=== PATIENT | male | born 1980 | race Caucasian/White ===

== ENCOUNTER 2019-01-14 22:38 | Emergency (ER) | payer MEDICARE ==
[~2019-01-14] VITALS: Ht 190.5 cm; Wt 118.2 kg
[2019-01-14 22:54] VITALS: BP 115/66; TEMP 97.9
[2019-01-15 00:29] LABS: BASO # 0.1 (0.0-0.2); BASO % 0.8 % (0.0-2.0); EOS # 0.3 (0.0-0.7); EOS % 3.2 % (0-4.0); GRAN # 5.6 (1.4-6.5); GRAN % 56.2 % (42.2-75.2); HEMATOCRIT 39.7 % (42.0-52.0); HEMOGLOBIN 13.2 g/dl (13.5-18.0); LYMPH # 3.1 (1.2-3.4); LYMPH % 31.4 % (20.0-51.0); MEAN CELL VOLUME 93 fl (80.0-100.0); MEAN CORPUSCULAR HEMOGLOBIN 31 pg (27.0-31.0); MEAN CORPUSCULAR HGB CONC 33 g/dl (33.0-37.0); MEAN PLATELET VOLUME 9.6 fl (7.4-10.4); MONO # 0.8 (0.1-0.6); MONO % 8.1 % (1.7-9.3); PLATELET COUNT 246 K/mm3 (130-400); RED BLOOD COUNT 4.25 M/mm3 (4.20-5.60); REDCELL DISTRIBUTION WIDTH-CV 13.2 % (11.5-14.5)
[2019-01-15 00:40] LABS: CALCIUM 9.9 mg/dL (8.4-10.2); CREATININE, serum 1.3 (0.66-1.25); POTASSIUM 3.6 mmol/L (3.4-5.0)
[2019-01-15] MEDS ORDERED: NORCO 325 MG-51 TAB PO (01:32)
[2019-01-15 01:42] VITALS: PULSE 66
== END 2019-01-15 01:54 | disposition home or self-care (01) ==
LOC: COL.ER 22:38
PROVIDERS: Physician Assistant
DX: M25.511 Pain in right shoulder (principal); M54.5 Low back pain; M54.6 Pain in thoracic spine; M54.2 Cervicalgia; F31.9 Bipolar disorder, unspecified; F43.10 Post-traumatic stress disorder, unspecified; K21.9 Gastro-esophageal reflux disease without esophagitis; J44.9 Chronic obstructive pulmonary disease, unspecified; Z98.890 Other specified postprocedural states; Z87.891 Personal history of nicotine dependence

== ENCOUNTER 2019-04-20 11:00 | Emergency (ER) | payer MEDICARE ==
[~2019-04-20] VITALS: Ht 190.5 cm; Wt 115.9 kg
[~2019-04-20 11:00] MED LIST: NORCO 325 MG-51 TAB PO
[2019-04-20 11:04] VITALS: TEMP 98.2
[2019-04-20] MEDS ORDERED: NEURONTIN600 MG/TAB PO (11:26)
[2019-04-20] MEDS ORDERED: BETAPACE 80MG80 MG PO (11:27)
[2019-04-20] MEDS ORDERED: LITHIUM 30300 MG/CAP PO (11:28)
[2019-04-20] MEDS ORDERED: SYNTHROID0.05 MG/TA PO (11:29)
[2019-04-20] MEDS ORDERED: PROTONIX 40MG T40 MG PO (11:29)
[2019-04-20] MEDS ORDERED: LIPITOR 10MG10 MG PO (11:30)
[2019-04-20] MEDS ORDERED: NATURAL POTASS595 MG (11:31)
[2019-04-20] MEDS ORDERED: 00186-0370-20 IH (11:32)
[2019-04-20] MEDS ORDERED: PROAIR HFA0.09 MG/AC IH (11:33)
[2019-04-20] MEDS ORDERED: SPIRIVA RESPIMAT4 GM IH (11:34)
[2019-04-20 11:37] LABS: BASO % 0.5 % (0.0-2.0); EOS # 0.3 (0.0-0.7); GRAN # 4.6 (1.4-6.5); GRAN % 59.4 % (42.2-75.2); HEMATOCRIT 42.3 % (42.0-52.0); LYMPH # 2.1 (1.2-3.4); LYMPH % 27.1 % (20.0-51.0); MEAN CELL VOLUME 93 fl (80.0-100.0); MEAN CORPUSCULAR HEMOGLOBIN 31 pg (27.0-31.0); MEAN CORPUSCULAR HGB CONC 33 g/dl (33.0-37.0); MEAN PLATELET VOLUME 9.5 fl (7.4-10.4); MONO # 0.7 (0.1-0.6); MONO % 8.7 % (1.7-9.3); PLATELET COUNT 232 K/mm3 (130-400); RED BLOOD COUNT 4.57 M/mm3 (4.20-5.60); REDCELL DISTRIBUTION WIDTH-CV 12.9 % (11.5-14.5)
[2019-04-20 11:45] LABS: ALBUMIN 4.5 gm/dL (3.5-5.0); BILIRUBIN,TOTAL 1.4 mg/dL (0.0-1.0); CALCIUM 9.7 mg/dL (8.4-10.2); CREATININE, serum 0.95 (0.66-1.25); TOTAL PROTEIN 8.3 gm/dL (6.4-8.2)
[2019-04-20 12:45] VITALS: BP 101/66; PULSE 61
== END 2019-04-20 12:45 | disposition home or self-care (01) ==
LOC: COL.ER 11:00
PROVIDERS: Nurse Practitioner
DX: K92.1 Melena (principal); J44.9 Chronic obstructive pulmonary disease, unspecified; K21.9 Gastro-esophageal reflux disease without esophagitis; F31.9 Bipolar disorder, unspecified; I10 Essential (primary) hypertension; F43.10 Post-traumatic stress disorder, unspecified; Z90.89 Acquired absence of other organs; Z95.0 Presence of cardiac pacemaker

== ENCOUNTER → 2019-04-28 | Outpatient (CLI) | payer MEDICARE ==
[~2019-04-28] MED LIST changes: +00186-0370-20 IH; +BETAPACE 80MG80 MG PO; +LIPITOR 10MG10 MG PO; +LITHIUM 30300 MG/CAP PO; +NATURAL POTASS595 MG; +NEURONTIN600 MG/TAB PO; +PROAIR HFA0.09 MG/AC IH; +PROTONIX 40MG T40 MG PO; +SPIRIVA RESPIMAT4 GM IH; +SYNTHROID0.05 MG/TA PO
== END ==
LOC: COL.RAD 10:59
DX: K92.1 Melena (principal); R10.30 Lower abdominal pain, unspecified; Z95.0 Presence of cardiac pacemaker
CPT/HCPCS: Q9967

== ENCOUNTER 2019-05-13 06:28 | Day surgery (SDC) | payer MEDICARE ==
[~2019-05-13] VITALS: Ht 190.5 cm; Wt 116.9 kg
[2019-05-13 06:55] VITALS: BP 112/81; PULSE 70; TEMP 98.1
[2019-05-13] MEDS ORDERED: LITHIUM 60600 MG/CAP PO (07:07)
--- NOTE | 2019-05-13 07:13 | NUR ---
TO RM AT 0630, CALL LIGHT IN REACH AT BEDSIDE.
[2019-05-13 08:15] VITALS: BP 108/64; PULSE 62; TEMP 98.3
--- NOTE | 2019-05-13 08:15 | NUR ---
TO BAY3 PER CART FROM ENDOSCOPY. ALERT ORIENTED X3, TALKING TO STAFF AND . AMBULATED TO RECLINER. DR BANG TALKED TO PATIENT PRIOR TO PATIENT RETURNING TO HIS ROOM. RECEIVED COLA AND EKTA. PUDDING.
--- NOTE | 2019-05-13 08:20 | NUR ---
FAUSTINA WILEY FROM [facility] NOTIFIED OF PATIENT RETURNING TO . I WAS INSTRUCTED LONG A MAGNET WAS USED AND REMOVED HE WOULD BE FINE TO RETURN HOME. PATIENT AND HIS STATED THEY HAVE A "PACEMAKER MONITOR" AT HOME TO MAKE SURE IT IS WORKING.
[2019-05-13 08:30] VITALS: BP 103/64; PULSE 63
--- NOTE | 2019-05-13 08:30 | NUR ---
ATE 100% AND TOLERATED WELL.
--- NOTE | 2019-05-13 08:35 | NUR ---
RECEIVED DISCHARGE INSTRUCTIONS AND VERBALIZED UNDERSTANDING. DISCONTINUED IV AND INT- CATHETER INTACT.
--- NOTE | 2019-05-13 08:45 | NUR ---
DISCHARGED PER WC BY NURSING STAFF TO PRIVATE CAR IN CARE OF - VASILIY.
== END 2019-05-13 08:45 | disposition home or self-care (01) ==
LOC: SDCO 06:28
DX: D12.0 Benign neoplasm of cecum (principal); E78.00 Pure hypercholesterolemia, unspecified; K21.9 Gastro-esophageal reflux disease without esophagitis; K92.1 Melena; I10 Essential (primary) hypertension; J44.9 Chronic obstructive pulmonary disease, unspecified; G47.33 Obstructive sleep apnea (adult) (pediatric); Z86.010 Personal history of colon polyps; Z95.0 Presence of cardiac pacemaker; Z82.49 Family history of ischemic heart disease and other diseases of the circulatory system; Z83.3 Family history of diabetes mellitus; Z82.3 Family history of stroke; Z87.891 Personal history of nicotine dependence; Z84.1 Family history of disorders of kidney and ureter; Z88.8 Allergy status to other drugs, medicaments and biological substances; Z88.6 Allergy status to analgesic agent
CPT/HCPCS: J2704; J7030

== ENCOUNTER → 2019-08-27 | Outpatient (CLI) | payer MEDICARE ==
[~2019-08-27] MED LIST changes: +LITHIUM 60600 MG/CAP PO
== END ==
LOC: COL.PUL 09:42
DX: R06.02 Shortness of breath (principal); Z87.891 Personal history of nicotine dependence
CPT/HCPCS: J7674

== ENCOUNTER 2019-10-22 09:43 | Outpatient (CLI) | payer MEDICARE ==
[~2019-10-22] VITALS: Ht 190.5 cm; Wt 116.8 kg
[2019-10-22] MEDS ORDERED: PRIL40 PO (10:13)
[2019-10-22] MEDS ORDERED: BETAPACE 80MG80 MG PO (10:15)
[2019-10-22 10:16] VITALS: BP 109/72; PULSE 69; TEMP 98.3
== END 2019-10-22 11:20 | disposition home or self-care (01) ==
LOC: EUO 09:43
DX: Z79.899 Other long term (current) drug therapy (principal)

== ENCOUNTER 2020-01-18 10:54 | Emergency (ER) | payer MEDICARE ==
[~2020-01-18] VITALS: Ht 190.5 cm; Wt 112.3 kg
[~2020-01-18 10:54] MED LIST changes: +PRIL40 PO
[2020-01-18 11:00] VITALS: BP 117/61; TEMP 97.7
[2020-01-18 11:45] VITALS: PULSE 72
== END 2020-01-18 11:49 | disposition home or self-care (01) ==
LOC: COL.ER 10:54
DX: J02.9 Acute pharyngitis, unspecified (principal); J45.909 Unspecified asthma, uncomplicated; Z20.828 Contact with and (suspected) exposure to other viral communicable diseases; Z88.8 Allergy status to other drugs, medicaments and biological substances; Z88.6 Allergy status to analgesic agent; Z87.891 Personal history of nicotine dependence; Z95.810 Presence of automatic (implantable) cardiac defibrillator; Z95.9 Presence of cardiac and vascular implant and graft, unspecified

== ENCOUNTER → 2020-07-26 | Outpatient (CLI) | payer MEDICARE ==
--- NOTE | 2020-07-22 12:49 | NUR ---
LMOM WITH INSTRUCTIONS AND CALL BACK NUMBER
[~2020-07-26] VITALS: Ht 190.5 cm; Wt 120.0 kg
[~2020-07-26] MED LIST changes: +PROLASTIN IV; +TRELEGY ELLIPT1 EACH IH
[2020-07-26 07:00] VITALS: BP 124/80; PULSE 68
[2020-07-26 08:30] VITALS: BP 121/78; PULSE 65
== END ==
LOC: COL.RAD 06:22
DX: M51.36 Other intervertebral disc degeneration, lumbar region (principal)
CPT/HCPCS: J3301

== ENCOUNTER 2020-08-28 11:38 | Emergency (ER) | payer MEDICARE ==
[~2020-08-28] VITALS: Ht 190.5 cm; Wt 115.5 kg
[2020-08-28 12:26] LABS: BASO # 0.1 (0.0-0.2); BASO % 0.7 % (0.0-2.0); EOS # 0.2 (0.0-0.7); GRAN # 4.2 (1.4-6.5); GRAN % 56.9 % (42.2-75.2); HEMATOCRIT 43.8 % (42.0-52.0); HEMOGLOBIN 14.8 g/dl (13.5-18.0); LYMPH # 2.3 (1.2-3.4); LYMPH % 31.2 % (20.0-51.0); MEAN CELL VOLUME 91 fl (80.0-100.0); MEAN CORPUSCULAR HEMOGLOBIN 31 pg (27.0-31.0); MEAN CORPUSCULAR HGB CONC 34 g/dl (33.0-37.0); MEAN PLATELET VOLUME 9.7 fl (7.4-10.4); MONO # 0.6 (0.1-0.6); MONO % 8.4 % (1.7-9.3); PLATELET COUNT 250 K/mm3 (130-400); RED BLOOD COUNT 4.79 M/mm3 (4.20-5.60); REDCELL DISTRIBUTION WIDTH-CV 13.1 % (11.5-14.5)
[2020-08-28 12:30] LABS: ALANINE AMINOTRANSFERASE 53 U/L (4-49); ALBUMIN 4.2 gm/dL (3.5-5.0); ALKALINE PHOSPHATASE 100 U/L (50-136); ANION GAP 10 mmol/L (7-16); AST,SGOT 46 U/L (15-37); BILIRUBIN,TOTAL 1.3 mg/dL (0.0-1.0); BLOOD UREA NITROGEN 10 mg/dL (9-20); CALCIUM 9.4 mg/dL (8.4-10.2); CARBON DIOXIDE 23 mmol/L (22-30); CHLORIDE 108 mmol/L (98-107); GLUCOSE 110 mg/dL (74-106); POTASSIUM 3.8 mmol/L (3.4-5.0); SODIUM 141 mmol/L (137-145); TOTAL PROTEIN 8.2 gm/dL (6.4-8.2)
[2020-08-28 12:34] LABS: C-REACTIVE PROTEIN < 0.5 mg/dL (0.0-0.9)
[2020-08-28 14:30] VITALS: BP 126/64; PULSE 64; TEMP 97.7
== END 2020-08-28 14:40 | disposition home or self-care (01) ==
LOC: COL.ER 11:38
PROVIDERS: Nurse Practitioner
DX: S00.412A Abrasion of left ear, initial encounter (principal); S00.411A Abrasion of right ear, initial encounter; G43.909 Migraine, unspecified, not intractable, without status migrainosus; E78.00 Pure hypercholesterolemia, unspecified; Z88.8 Allergy status to other drugs, medicaments and biological substances; Z88.6 Allergy status to analgesic agent; Z87.891 Personal history of nicotine dependence; X58.XXXA Exposure to other specified factors, initial encounter
CPT/HCPCS: J1200; J1885; J2550; J2765; J7030

== ENCOUNTER 2020-11-25 10:53 | Emergency (ER) | payer MEDICARE ==
[~2020-11-25] VITALS: Ht 190.5 cm; Wt 117.3 kg
[~2020-11-25 10:53] MED LIST changes: -NATURAL POTASS595 MG PO; -NEXIUM 40MG40 MG PO; -PREDNISONE20 MG PO
[2020-11-25 11:05] VITALS: TEMP 97.7
[2020-11-25] MEDS ORDERED: PREDNISONE20 MG PO (12:03)
[2020-11-25 12:29] VITALS: BP 127/85; PULSE 70
== END 2020-11-25 12:32 | disposition home or self-care (01) ==
LOC: COL.ER 10:53
DX: T80.89XA Other complications following infusion, transfusion and therapeutic injection, initial encounter (principal); R22.32 Localized swelling, mass and lump, left upper limb; E88.01 Alpha-1-antitrypsin deficiency; Z88.6 Allergy status to analgesic agent
CPT/HCPCS: J1100

== ENCOUNTER → 2020-11-25 | Outpatient (CLI) | payer MEDICARE ==
[~2020-11-25] MED LIST changes: +NATURAL POTASS595 MG PO; +NEXIUM 40MG40 MG PO; +PREDNISONE20 MG PO
== END ==
LOC: COL.RAD 13:16
DX: M48.02 Spinal stenosis, cervical region (principal); M54.12 Radiculopathy, cervical region

== ENCOUNTER 2021-02-16 21:49 | Emergency (ER) | payer SELFPAY ==
[~2021-02-16] VITALS: Ht 190.5 cm; Wt 118.2 kg
[~2021-02-16 21:49] MED LIST changes: +PREDNISONE20 MG PO
[2021-02-17 01:12] VITALS: BP 135/88; PULSE 75; TEMP 97.8
== END 2021-02-17 01:12 | disposition home or self-care (01) ==
LOC: COL.ER 21:49
DX: M25.572 Pain in left ankle and joints of left foot (principal); G89.29 Other chronic pain; M54.9 Dorsalgia, unspecified; I25.2 Old myocardial infarction; Z79.899 Other long term (current) drug therapy; Z88.6 Allergy status to analgesic agent; W10.9XXA Fall (on) (from) unspecified stairs and steps, initial encounter; Y92.59 Other trade areas as the place of occurrence of the external cause; Y99.0 Civilian activity done for income or pay

== ENCOUNTER 2021-04-11 12:54 | Day surgery (SDC) | payer MEDICARE ==
[~2021-04-11] VITALS: Ht 190.5 cm; Wt 123.0 kg
[2021-04-11] MEDS ORDERED: NATURAL POTASS595 MG PO (13:39)
[2021-04-11] MEDS ORDERED: NEXIUM 40MG40 MG PO (13:39)
[2021-04-11 13:43] VITALS: BP 109/71; PULSE 115; TEMP 98.4
--- NOTE | 2021-04-11 14:04 | NUR ---
Patient's blood glucose reading was 91. The patient states that he feels like his blood sugar is getting too low. He does not take any diabetic medications. Solitario Vu CRNA is notified and orders [id number] IVF.
[2021-04-11 16:40] VITALS: BP 129/70; PULSE 66; TEMP 97.5
--- NOTE | 2021-04-11 16:40 | NUR ---
Patient arrived back from OR. Report received from POCKET AND PULLEY MACHINE OPERATORDeena and EYELET PUNCH OPERATORSolitario. Patient awakens to voice. Resting with eyes closed. No complaint of pain or nausea.
[2021-04-11] MEDS ORDERED: NORCO 325 MG-51 TAB PO (16:50)
[2021-04-11 16:55] VITALS: BP 130/70; PULSE 60
--- NOTE | 2021-04-11 16:55 | NUR ---
Patient alert and awake. Requesting food and drink. Had orange juice and pop tart. Minimal complaint of pain. No nausea or vomiting. Tolerating food and drink well. 1705: IV removed with no complications. Dr. Ac in to see patient.
[2021-04-11 17:10] VITALS: BP 127/70; PULSE 65
--- NOTE | 2021-04-11 17:10 | NUR ---
Patient got dressed and went to the bathroom.
--- NOTE | 2021-04-11 17:18 | NUR ---
Went through discharge instructions with patient and his . Questions answered. Verbalized understanding. Patient escorted to personal vehicle via wheelchair. Patient left in the care of his .
== END 2021-04-11 17:25 | disposition home or self-care (01) ==
LOC: SDCO 12:54
DX: E88.01 Alpha-1-antitrypsin deficiency (principal); E78.00 Pure hypercholesterolemia, unspecified; J45.909 Unspecified asthma, uncomplicated; E07.9 Disorder of thyroid, unspecified; K21.9 Gastro-esophageal reflux disease without esophagitis; K76.0 Fatty (change of) liver, not elsewhere classified; J43.8 Other emphysema; Z78.9 Other specified health status; Z79.899 Other long term (current) drug therapy; Z79.890 Hormone replacement therapy; Z95.810 Presence of automatic (implantable) cardiac defibrillator
CPT/HCPCS: C1788; J0690; J1644; J2250; J2704; J7120; J7121

== ENCOUNTER → 2021-05-12 | Outpatient (CLI) | payer OTHER ==
[~2021-05-12] MED LIST changes: +NATURAL POTASS595 MG PO; +NEXIUM 40MG40 MG PO
== END ==
LOC: COL.RAD 12:08
DX: S96.812D Strain of other specified muscles and tendons at ankle and foot level, left foot, subsequent encounter (principal); M25.531 Pain in right wrist; M54.50 Low back pain, unspecified

== ENCOUNTER 2021-05-18 08:09 | Outpatient (RCR) | payer OTHER | END 2021-05-29 | disposition home or self-care (01) | LOC: WSPT | DX: S96.812D Strain of other specified muscles and tendons at ankle and foot level, left foot, subsequent encounter (principal); M25.539 Pain in unspecified wrist; K21.9 Gastro-esophageal reflux disease without esophagitis; E03.9 Hypothyroidism, unspecified; E78.00 Pure hypercholesterolemia, unspecified; F43.10 Post-traumatic stress disorder, unspecified; F31.9 Bipolar disorder, unspecified; F41.9 Anxiety disorder, unspecified; M50.20 Other cervical disc displacement, unspecified cervical region; M51.26 Other intervertebral disc displacement, lumbar region; E88.01 Alpha-1-antitrypsin deficiency; Z87.891 Personal history of nicotine dependence; Z98.890 Other specified postprocedural states; Z90.89 Acquired absence of other organs; Y99.0 Civilian activity done for income or pay; W18.09XD Striking against other object with subsequent fall, subsequent encounter | CPT/HCPCS: 24774; L1810 ==

== ENCOUNTER 2021-06-09 14:55 | Outpatient (RCR) | payer MEDICARE | END 2021-06-10 | LOC: WSPT | DX: M54.2 Cervicalgia (principal); E88.01 Alpha-1-antitrypsin deficiency; E03.9 Hypothyroidism, unspecified; K76.0 Fatty (change of) liver, not elsewhere classified; H40.9 Unspecified glaucoma; N52.9 Male erectile dysfunction, unspecified ==

== ENCOUNTER 2021-08-02 08:45 | Outpatient (RCR) | payer MEDICARE | END 2021-08-08 | disposition home or self-care (01) | LOC: WSPT | DX: M54.2 Cervicalgia (principal) ==

== ENCOUNTER 2021-08-10 08:33 | Outpatient (RCR) | payer MEDICARE ==
[2021-08-27] MEDS ORDERED: CLARITIN 1010 MG/TAB PO (12:50)
[2021-08-27] MEDS ORDERED: VITAMINC1000TA (12:51)
[2021-08-27] MEDS ORDERED: INFANTS AQU400 IU/ML PO (12:52)
[2021-09-02] MEDS ORDERED: CUBICIN 500MG500 MG IV (10:07)
[2021-09-02] MEDS ORDERED: LAMICTAL 25MG T25 MG PO (10:11)
== END 2021-09-08 | disposition still patient (30) ==
LOC: WSPT
DX: M54.2 Cervicalgia (principal)

== ENCOUNTER 2021-08-27 10:59 | Inpatient (IN) | payer MEDICARE ==
[~2021-08-27] VITALS: Ht 190.5 cm; Wt 98.2 kg
[2021-08-27] VITALS (17 sets, daily range): BP systolic 96–118; BP diastolic 53–60; PULSE 108–120; TEMP 99.6–102.6
[2021-08-27 11:24] LABS: HEMOGLOBIN 12.7 g/dl (13.5-18.0); MEAN CELL VOLUME 83 fl (80.0-100.0); MEAN CORPUSCULAR HEMOGLOBIN 29 pg (27-31); MEAN CORPUSCULAR HGB CONC 35 g/dl (33.0-37.0); MEAN PLATELET VOLUME 11.6 fl (7.4-10.4); PLATELET COUNT 136 K/mm3 (130-400); RED BLOOD COUNT 4.36 M/mm3 (4.20-5.60); REDCELL DISTRIBUTION WIDTH-CV 13.2 % (11.5-14.5)
[2021-08-27 11:29] LABS: HEMATOCRIT 36.1 % (42.0-52.0)
[2021-08-27 11:39] LABS: ALBUMIN 2.5 gm/dL (3.5-5.0); BILIRUBIN,TOTAL 2.4 mg/dL (0.2-1.2); CALCIUM 7.9 mg/dL (8.4-10.2); CREATININE, serum 1.2 mg/dL (0.72-1.25); POTASSIUM 3.6 mmol/L (3.5-4.5); TOTAL PROTEIN 7.2 gm/dL (6.2-8.1)
[2021-08-27 11:55] LABS: BAND 3 % (0-10); EOSINOPHIL 1 % (0-4); LYMPHOCYTE 5 % (20.0-51.0); NEUTROPHILS 87 % (42.0-75.2); PLATELET ESTIMATE NORMAL (NORMAL)
[2021-08-27 12:29] LABS: COLLECTION METHOD CLEAN CATCH
[2021-08-27 12:38] LABS: PH 6 (5-8); SQUAMOUS EPITHELIAL 0-2 /hpf (0-10); URINE APPEARANCE Clear (CLEAR/HAZY); URINE BACTERIA None Seen /hpf (NONE SEEN); URINE BILIRUBIN Negative (NEGATIVE); URINE BLOOD 1+ (NEGATIVE); URINE COLOR Yellow (YELLOW); URINE GLUCOSE Negative (NEGATIVE); URINE KETONE Negative (NEGATIVE); URINE LEUKOCYTE ESTERASE Negative (NEGATIVE); URINE NITRATE Negative (NEGATIVE); URINE PROTEIN(semi-quant) Negative (NEGATIVE); URINE RBC 0-2 /hpf (0-2); URINE UROBILINOGEN Negative (NEGATIVE)
[2021-08-27] MEDS ORDERED: CLARITIN 1010 MG/TAB PO (12:50)
[2021-08-27] MEDS ORDERED: VITAMINC1000TA (12:51)
[2021-08-27] MEDS ORDERED: INFANTS AQU400 IU/ML PO (12:52)
--- NOTE | 2021-08-27 14:32 | NUR ---
PT ADMITTED TO UNIT. ADMISSION ASSESSMENT, MED REC, PHARMACY, AND ALLERGIES COMPLETED/REVIEWED. VITALS OBTAINED. NOTIFIED KELECHI TOVAR OF PT BEING TACHYCARDIC, TACHYPNIC, AND TEMP OF 101.4.
--- NOTE | 2021-08-27 15:17 | NUR ---
NOTIFIED [facility] OF POSTIVE SUICIDE SCREEN. SUICIDE PRECAUTIONS IMPLEMENTED
--- NOTE | 2021-08-27 15:43 | NUR ---
Notified DR. VEGAS OF PT POSITIVE SCREEN FOR SUICIDE. CONFIRMED PT IS NOT PLANNING TO HARM SELF WHILE IN [facility]. PT STATES OVERWHELMED WITH ANXIETY DUE TO COVID AND NOT BEING ABLE TO SLEEP AT NIGHT OR EAT ANYTHING. IMPLEMENTING 15MINUTE CHECKS.
--- NOTE | 2021-08-27 15:44 | NUR ---
PT STATES DOES NOT SEE THERAPIST, DOES NOT WISH TO SPEAK TO SOMEONE ABOUT THESE ISSUES.
[2021-08-27 16:06] LABS: CALCIUM 7.7 mg/dL (8.4-10.2); CREATININE, serum 1.16 mg/dL (0.72-1.25); POTASSIUM 3.7 mmol/L (3.5-4.5)
[2021-08-27 16:27] LABS: TSH w REFLEX 2.158 uIU/mL (0.350-4.940)
--- NOTE | 2021-08-27 18:10 | NUR ---
PT AGREEABLE, NEEDING IV FLUIDS. DISCUSSED NEED FOR SAFETY PT ASSURED WILL CALL WITH THOUGHTS OF SELF HARM. REMOVED NECESSARY CORDS, GAVE BACK PHONE TO CALL FOR MEALS WILL REMOVE WHEN FINISHED.
--- NOTE | 2021-08-27 18:21 | NUR ---
REMOVED PHONE FROM ROOM.
--- NOTE | 2021-08-27 18:47 | NUR ---
NOTIFIED BY LARON STORM OF [facility] LAB RESULT. DR. VEGAS NOTIFIED BY LARON STORM.
--- NOTE | 2021-08-27 19:18 | NUR ---
REPORT GIVEN TO LARON GILBERT. SUICIDE CHECKS PERFORMED TO BEST OF ABILITY. PT CONTINUED WITH FEVER, TYLENOL ADMINISTERED. RECHECK OF TEMPERATURE AT 1800 WAS 101.1. UNABLE TO GIVE MORE TYLENOL. PT AGREEABLE, NO SIGNS OF INTENT TO HARM AT THIS TIME.
--- NOTE | 2021-08-27 22:05 | NUR ---
Patient sitting up in bed and having dinner upon enter the room. Patient states he is feeling better since he came to the hospital. Patient states he was able to eat some food tonight without feeling nauseous. Denies chest pain or SOB. Patient currently on room air. Breathing was even and unlabored. Patient denies feeling sad or depressed. Patient denies any suicide thoughts or hurting himself at this time. Encouraged patient to call the nurse if having any suicide thoughts. Patient agreed. Call light in reach. Suicide precaution mainted and Q15 minutes suicide check in place. Will continue to monitor.
[2021-08-28] VITALS (40 sets, daily range): BP systolic 24–124; BP diastolic 50–68; PULSE 89–133; TEMP 97.6–103.3
--- NOTE | 2021-08-28 06:39 | NUR ---
Patient denies suicidal thoughts throughout the night. Patient had several loose BM over the night. GI panel collected and sent to lab. Patient had high temp of 103 at midnight. PRN Tylenol given. Temp 100.4 this morning. Call light in reach. Will give report to day shift nurse.
--- NOTE | 2021-08-28 06:49 | NUR ---
Patient's HR goes up to 140-150 when he get up to move around. Resting HR range from 100-120 over the night. Hospitalist KELECHI Donato made aware.
[2021-08-28 06:54] LABS: HEMOGLOBIN 11.4 g/dl (13.5-18.0); MEAN CELL VOLUME 85 fl (80.0-100.0); MEAN CORPUSCULAR HEMOGLOBIN 30 pg (27-31); MEAN CORPUSCULAR HGB CONC 35 g/dl (33.0-37.0); MEAN PLATELET VOLUME 12.2 fl (7.4-10.4); PLATELET COUNT 132 K/mm3 (130-400); RED BLOOD COUNT 3.87 M/mm3 (4.20-5.60); REDCELL DISTRIBUTION WIDTH-CV 13.6 % (11.5-14.5)
[2021-08-28 07:04] LABS: HEMATOCRIT 32.8 % (42.0-52.0)
[2021-08-28 07:24] LABS: ALBUMIN 2.1 gm/dL (3.5-5.0); BILIRUBIN,DIRECT 1.9 mg/dL (0.0-0.5); BILIRUBIN,TOTAL 2.6 mg/dL (0.2-1.2); CALCIUM 7.1 mg/dL (8.4-10.2); CREATININE, serum 0.95 mg/dL (0.72-1.25); POTASSIUM 3.6 mmol/L (3.5-4.5); TOTAL PROTEIN 6.4 gm/dL (6.2-8.1)
[2021-08-28 08:51] LABS: BAND 8 % (0-10); LYMPHOCYTE 4 % (20.0-51.0); NEUTROPHILS 84 % (42.0-75.2)
[2021-08-28 08:52] LABS: PLATELET ESTIMATE DECREASED (NORMAL)
--- NOTE | 2021-08-28 13:45 | NUR ---
While transfering a different pt to ICU, LARON Cardenas called and stated that pt experiencing full body shivering and she has called MD Mariia I informed LARON Cardenas to stop Vancomycin. 1355 I arrived to pt's bedside - pt denies being cold, no fever present - shivering continues - pt tachycardic 140-150 - Sotalol administered Solumedrol and Benadryl administered per MD Mariia EKG attempted by RT Julieta however artifact present due to shivering. MD Mariia stated that EKG is not required if un-obtainable. 1400: Shivering greatly reduced 1430: Shivering has stopped - HR down to 120's - pt states "I feel fine now"
--- NOTE | 2021-08-28 15:21 | NUR ---
1400: pt's only symptom during episode was full body shivering. No facial swelling or rash anywhere was present
[2021-08-29] VITALS (32 sets, daily range): BP systolic 94–104; BP diastolic 56–65; PULSE 74–95; TEMP 97.5–98.2
--- NOTE | 2021-08-29 05:12 | NUR ---
PATIENT CALM AND COOPERATIVE THROUGHOUT THE NIGHT. NO NEW ISSUES NOTED OR REPORTED BY PATIENT. PATIENT DENIES SI THROUGHOUT THE SHIFT. PATIENT VERY PLEASANT AND KIND.
[2021-08-29 06:48] LABS: HEMOGLOBIN 12.2 g/dl (13.5-18.0); MEAN CELL VOLUME 82 fl (80.0-100.0); MEAN CORPUSCULAR HEMOGLOBIN 30 pg (27-31); MEAN CORPUSCULAR HGB CONC 37 g/dl (33.0-37.0); MEAN PLATELET VOLUME 12.2 fl (7.4-10.4); PLATELET COUNT 94 K/mm3 (130-400); RED BLOOD COUNT 4.05 M/mm3 (4.20-5.60); REDCELL DISTRIBUTION WIDTH-CV 13.7 % (11.5-14.5)
[2021-08-29 06:51] LABS: HEMATOCRIT 33.1 % (42.0-52.0)
[2021-08-29 07:09] LABS: CALCIUM 7.4 mg/dL (8.4-10.2); CREATININE, serum 0.75 mg/dL (0.72-1.25)
[2021-08-29 08:18] LABS: BAND 9 % (0-10); LYMPHOCYTE 7 % (20.0-51.0); NEUTROPHILS 82 % (42.0-75.2); PLATELET ESTIMATE DECREASED (NORMAL)
--- NOTE | 2021-08-29 09:48 | NUR ---
PT SITTING UP IN BED. MORNING MEDICATIONS GIVEN. SHIFT ASSESSMENT COMPLETED. PT DENIES ANY PAIN OR NEEDS. UPDATED PT ON POC. REPORT MILD SOB WHEN AMBULATING, LUNG SOUNDS DIMINISHED. WILL CONTINUE TO MONITOR.
--- NOTE | 2021-08-29 16:25 | NUR ---
Patient to have psych consult, will complete intake tomorrow.
--- NOTE | 2021-08-29 18:22 | NUR ---
PT HAD AN UNEVENTFUL DAY. HAD NO CYANOTIC/HYPOTHERMIC EPISODES DURING THIS SHIFT. PT REPORTS DIARRHEA THIS MORNING, BUT NONE THROUGHOUT THE DAY. DENIES ANY PAIN OR NEEDS THROUGHOUT THE DAY. WILL PASS ALONG SHIFT REPORT TO ONCOMING RN.
[2021-08-30] VITALS (21 sets, daily range): BP systolic 104–1047; BP diastolic 51–65; PULSE 78–99; TEMP 96.8–98.2
--- NOTE | 2021-08-30 04:46 | NUR ---
PATIENT CALM AND COOPERATIVE THROUGHOUT THE NIGHT. NO NEW ISSUES NOTED OR REPORTED BY PATIENT.
[2021-08-30 06:46] LABS: HEMOGLOBIN 12.2 g/dl (13.5-18.0); MEAN CELL VOLUME 86 fl (80.0-100.0); MEAN CORPUSCULAR HEMOGLOBIN 29 pg (27-31); MEAN CORPUSCULAR HGB CONC 34 g/dl (33.0-37.0); MEAN PLATELET VOLUME 12.7 fl (7.4-10.4); PLATELET COUNT 171 K/mm3 (130-400); RED BLOOD COUNT 4.15 M/mm3 (4.20-5.60); REDCELL DISTRIBUTION WIDTH-CV 14.2 % (11.5-14.5)
[2021-08-30 06:54] LABS: HEMATOCRIT 35.6 % (42.0-52.0)
[2021-08-30 07:04] LABS: ALBUMIN 2.1 gm/dL (3.5-5.0); BILIRUBIN,TOTAL 1.2 mg/dL (0.2-1.2); CALCIUM 7.6 mg/dL (8.4-10.2); CREATININE, serum 0.78 mg/dL (0.72-1.25); POTASSIUM 3.8 mmol/L (3.5-4.5); TOTAL PROTEIN 6.8 gm/dL (6.2-8.1)
[2021-08-30 08:31] LABS: BAND 14 % (0-10); LYMPHOCYTE 18 % (20.0-51.0); METAMYELOCYTE 1 % (0-0); NEUTROPHILS 58 % (42.0-75.2); PLATELET ESTIMATE NORMAL (NORMAL)
--- NOTE | 2021-08-30 09:56 | NUR ---
PT RESTING IN BED. MORNING MEDICATIONS GIVEN. SHIFT ASSESSMENT COMPLETED. PT DENIES ANY PAIN OR NEEDS. STATES HE HAS NOT HAD A STOOL SINCE YESTERDAY MORNING. WILL CONTINUE TO MONITOR.
--- NOTE | 2021-08-30 13:03 | NUR ---
Superintendent [employer] contacted patient to complete intake. Patient lives in [place] with his , Lani (ph#[phone]) and their children. Patient sees Dr. Veras for primary care and obtains medications from [facility] with no difficulties. Patient uses a cane for ambulation and also reports he does a home infusion on a weekly basis through a port in his chest. Patient is independent with ADLS and plans to return home at time of discharge. Patient does not have Advance Directives. Patient reports his parents, [place] and Vesna also live nearby. Discharge Plan: Home
--- NOTE | 2021-08-30 18:21 | NUR ---
PT HAD UNEVENTFUL DAY. TAKEN OFF OF NEURO AND SUICIDE PRECAUTIONS. BELONGINGS OBTAINED FROM SECURITY AND GIVEN TO PT. WILL PASS ALONG TO ONCOMING RN.
[2021-08-31 00:15] VITALS: BP 106/56; PULSE 92; TEMP 98.1
[2021-08-31 04:50] VITALS: BP 103/61; PULSE 90; TEMP 98.3
--- NOTE | 2021-08-31 05:36 | NUR ---
PATIENT RESTED QUIETLY IN BED THROUGHOUT THE NIGHT. PATIENT HAS BEEN NPO SINCE MIDNIGHT. NO NEW ISSUES OVERNIGHT.
[2021-08-31 06:36] LABS: HEMOGLOBIN 11.5 g/dl (13.5-18.0); MEAN CELL VOLUME 86 fl (80.0-100.0); MEAN CORPUSCULAR HEMOGLOBIN 29 pg (27-31); MEAN CORPUSCULAR HGB CONC 34 g/dl (33.0-37.0); MEAN PLATELET VOLUME 11.5 fl (7.4-10.4); PLATELET COUNT 222 K/mm3 (130-400); RED BLOOD COUNT 3.94 M/mm3 (4.20-5.60); REDCELL DISTRIBUTION WIDTH-CV 14.2 % (11.5-14.5)
[2021-08-31 06:44] LABS: CALCIUM 7.7 mg/dL (8.4-10.2); CREATININE, serum 0.84 mg/dL (0.72-1.25); POTASSIUM 4.1 mmol/L (3.5-4.5)
[2021-08-31 07:17] VITALS: BP 122/70; PULSE 91; TEMP 97.9
[2021-08-31 07:39] LABS: BAND 3 % (0-10); EOSINOPHIL 1 % (0-4); LYMPHOCYTE 16 % (20.0-51.0); NEUTROPHILS 71 % (42.0-75.2); PLATELET ESTIMATE NORMAL (NORMAL); POLYCHROMASIA 1+
--- NOTE | 2021-08-31 09:24 | NUR ---
Patient remains in covid isolation; This RN called ID nurse and asked if it would be appropriate for the patient to be reswabbed, since he is asymptomatic. ID aggreed that this was appropriate, and Dr. Herrera was called. Dr. Herrera also agreed with this. Swab was done, currently awaiting results. Patient will be having a AILYN done at 1030.
--- NOTE | 2021-08-31 15:42 | NUR ---
Patient has done well today since AILYN. BP a little soft, 90s/60s. HR and O2 WNL. Plan at this time is for patient to have their PAC removed tomorrow afternoon. Consent signed.
[2021-08-31 15:50] VITALS: BP 110/66; PULSE 103; TEMP 97.7
[2021-08-31 20:36] VITALS: BP 104/61; PULSE 110; TEMP 99
--- NOTE | 2021-08-31 21:26 | NUR ---
ALERT AND OX4. DENIES SOA, CHEST PAIN OR DIZZY. NPO AT MIDNIGHT FOR PORT REMOVAL TOMORROW. PT V/U. PM MEDS GIVEN. CALL LIGHT WI REACH.
[2021-09-01] VITALS (13 sets, daily range): BP systolic 106–127; BP diastolic 59–79; PULSE 16–102; TEMP 97.7–99.6
[2021-09-01 06:41] LABS: HEMOGLOBIN 10.7 g/dl (13.5-18.0); MEAN CELL VOLUME 87 fl (80.0-100.0); MEAN CORPUSCULAR HEMOGLOBIN 30 pg (27-31); MEAN CORPUSCULAR HGB CONC 34 g/dl (33.0-37.0); MEAN PLATELET VOLUME 10.7 fl (7.4-10.4); PLATELET COUNT 233 K/mm3 (130-400); RED BLOOD COUNT 3.63 M/mm3 (4.20-5.60); REDCELL DISTRIBUTION WIDTH-CV 14.2 % (11.5-14.5)
[2021-09-01 06:47] LABS: HEMATOCRIT 31.7 % (42.0-52.0)
[2021-09-01 06:52] LABS: CALCIUM 7.6 mg/dL (8.4-10.2); CREATININE, serum 0.8 mg/dL (0.72-1.25)
[2021-09-01 07:49] LABS: BAND 1 % (0-10); LYMPHOCYTE 12 % (20.0-51.0); NEUTROPHILS 77 % (42.0-75.2)
--- NOTE | 2021-09-01 09:16 | NUR ---
Patient laying in bed, watching television, upon entering the room. Patient denies any concerns. Plan is for the patient to have his PAC removed at 1600 today. Consent has been signed and patient understands the procedure. Patient home medication prepared by pharmacy and to be administered.
--- NOTE | 2021-09-01 09:46 | NUR ---
Patient's home medication has been infused; No reactions noted. Patient feels fine but does inform this RN that the infusion usually makes him tired afterwards.
--- NOTE | 2021-09-01 11:01 | NUR ---
Corporate Law Assistant followed up with patient and patient's by phone on discharge plan. SW discussed the need for IV antibiotics and they plan to do the outpatient antibiotics at [facility] at time of discharge. SW inquired about the infusion company they use for patient's home infusion and they stated "[employer]" which is not one SW is familiar with. Patient is having port removed today.
--- NOTE | 2021-09-01 16:47 | NUR ---
Patient taken down to OR at approx. 1545 for PAC removal. OR called can notified that patient will not be in room 307, and will be in room 350 instead.
--- NOTE | 2021-09-01 17:14 | NUR ---
Patient arrived back from OR. A&Ox4, VSS, site dressing CDI. Patient requesting to eat dinner. This RN is currently waiting for orders to be put in by Dr. Ac.
--- NOTE | 2021-09-01 19:17 | NUR ---
RECEIVED CHANGE OF SHIFT REPORT FROM DAY SHIFT RN.
--- NOTE | 2021-09-02 02:37 | NUR ---
PATIENT WITH NO C/O OF SURGICAL DISCOMFORT SO FAR THIS SHIFT. UP IN ROOM AD RAMA WITH NO REPORTED PROBLEMS OR CONCERNS. TELE CONTINUES. INT IN PLACE.
[2021-09-02 04:11] VITALS: BP 111/68; PULSE 93; TEMP 98.5
[2021-09-02 05:53] LABS: HEMOGLOBIN 10.3 g/dl (13.5-18.0); MEAN CELL VOLUME 87 fl (80.0-100.0); MEAN CORPUSCULAR HEMOGLOBIN 29 pg (27-31); MEAN CORPUSCULAR HGB CONC 34 g/dl (33.0-37.0); MEAN PLATELET VOLUME 10.3 fl (7.4-10.4); PLATELET COUNT 244 K/mm3 (130-400); RED BLOOD COUNT 3.53 M/mm3 (4.20-5.60); REDCELL DISTRIBUTION WIDTH-CV 14.4 % (11.5-14.5)
[2021-09-02 06:03] LABS: CALCIUM 7.4 mg/dL (8.4-10.2); CREATININE, serum 0.77 mg/dL (0.72-1.25); POTASSIUM 4.2 mmol/L (3.5-4.5)
[2021-09-02 06:18] LABS: HEMATOCRIT 30.6 % (42.0-52.0)
[2021-09-02 06:36] LABS: COLLECTION METHOD CLEAN CATCH
[2021-09-02 06:51] LABS: PH 6 (5-8); SQUAMOUS EPITHELIAL None Seen /hpf (0-10); URINE APPEARANCE Clear (CLEAR/HAZY); URINE BACTERIA None Seen /hpf (NONE SEEN); URINE BILIRUBIN Negative (NEGATIVE); URINE BLOOD Negative (NEGATIVE); URINE COLOR Yellow (YELLOW); URINE GLUCOSE Negative (NEGATIVE); URINE KETONE Negative (NEGATIVE); URINE LEUKOCYTE ESTERASE Negative (NEGATIVE); URINE NITRATE Negative (NEGATIVE); URINE PROTEIN(semi-quant) Negative (NEGATIVE); URINE RBC 0-2 /hpf (0-2); URINE UROBILINOGEN >=4.0 (NEGATIVE)
--- NOTE | 2021-09-02 06:58 | NUR ---
CHANGE OF SHIFT REPORT GIVEN TO DAY SHIFT RNs, AISHA.
[2021-09-02 07:10] LABS: HYPOCHROMIA 1+; LYMPHOCYTE 15 % (20.0-51.0); METAMYELOCYTE 2 % (0-0); MYELOCYTE 1 % (0-0); NEUTROPHILS 72 % (42.0-75.2)
[2021-09-02 07:11] LABS: PLATELET ESTIMATE NORMAL (NORMAL)
[2021-09-02 08:02] VITALS: BP 116/68; PULSE 93; TEMP 98.6
--- NOTE | 2021-09-02 08:13 | NUR ---
Pt assessment complete. Pt laying in bed upon entry, he is A/O x4. His breathing is even and unlabored on RA. Pt denies any SOB at this time. Denies chest pain. Reports pain to back of head 3/10, reports this is a chronic thing. Denies need for pain medications. Denies N/V. No needs at this time. Call light within reach.
[2021-09-02] MEDS ORDERED: CUBICIN 500MG500 MG IV (10:07)
[2021-09-02] MEDS ORDERED: LAMICTAL 25MG T25 MG PO (10:11)
--- NOTE | 2021-09-02 11:02 | NUR ---
Senior Hydrogeologist collaborated with Hospitalist who advised patient will discharge home today with plan for outpatient IV antibiotics in [place]. Patient will need once daily antibiotic. Patient to have PICC placed on Sunday as outpatient. SW contacted [facility] and faxed referral/orders/prescription. LARON Silverman at [facility] confirmed everything they need was received. Patient's first appointment at [facility] will be tomorrow, Sunday at 1200. SW met with patient and patient's , Lani to review the above discharge plan. Both verbalized understanding and agreement. SW presented and reviewed IM form with patient who verbalized understanding and provided signature. SW placed form in chart and provided copy to patient. Discharge Plan: Home with outpatient IV antibiotics.
--- NOTE | 2021-09-02 11:42 | NUR ---
Discharge instructions and paperwork reviewed with patient, all questions answered at this time. IV to L hand dc'd catheter tip intact. Pt wheeled out of facility by a staff member at this time.
== END 2021-09-02 11:45 | disposition home or self-care (01) | DRG 314 ==
LOC: COL.ER 10:59 → MEDICAL 12:37 → COL.ER 12:37 → MEDICAL 12:37 → SURG 09-01 16:12
PROVIDERS: Internal Medicine; Nurse Practitioner Primary Care; Physician Assistant; Surgery; ADMIT Student in an Organized Health Care Education/Training Program
PROC: 05PY33Z Removal of Infusion Device from Upper Vein, Percutaneous Approach (ICD-10-PCS; principal; 2021-09-01 16:00)
DX: T80.211A Bloodstream infection due to central venous catheter, initial encounter (principal); A41.9 Sepsis, unspecified organism; I26.90 Septic pulmonary embolism without acute cor pulmonale; U07.1 COVID-19; I76 Septic arterial embolism; E87.1 Hypo-osmolality and hyponatremia; E11.9 Type 2 diabetes mellitus without complications; I10 Essential (primary) hypertension; F31.9 Bipolar disorder, unspecified; F43.10 Post-traumatic stress disorder, unspecified; F91.1 Conduct disorder, childhood-onset type; E78.5 Hyperlipidemia, unspecified; K21.9 Gastro-esophageal reflux disease without esophagitis; G43.909 Migraine, unspecified, not intractable, without status migrainosus; G47.33 Obstructive sleep apnea (adult) (pediatric); E88.01 Alpha-1-antitrypsin deficiency; E86.0 Dehydration; D64.9 Anemia, unspecified; E87.8 Other disorders of electrolyte and fluid balance, not elsewhere classified; R16.1 Splenomegaly, not elsewhere classified; B95.61 Methicillin susceptible Staphylococcus aureus infection as the cause of diseases classified elsewhere; K76.0 Fatty (change of) liver, not elsewhere classified; D69.6 Thrombocytopenia, unspecified; Y82.8 Other medical devices associated with adverse incidents; Z95.0 Presence of cardiac pacemaker; Z95.810 Presence of automatic (implantable) cardiac defibrillator; Z23 Encounter for immunization
CPT/HCPCS: 99223-AI; 99232-AI; 99233-AI; 99239; J0690; J0878; J1200; J1650; J2250; J2405; J2704; J2920; J3010; J3370; J7030; J7040; Q9967

== ENCOUNTER 2021-09-05 09:21 | Outpatient (CLI) | payer MEDICARE ==
[~2021-09-05] VITALS: Ht 190.5 cm; Wt 100.4 kg
[~2021-09-05 09:21] MED LIST changes: +CLARITIN 1010 MG/TAB PO; +CUBICIN 500MG500 MG IV; +INFANTS AQU400 IU/ML PO; +LAMICTAL 25MG T25 MG PO; +VITAMINC1000TA
[2021-09-05 09:55] VITALS: BP 114/73; PULSE 85; TEMP 98.1
== END 2021-09-05 11:15 | disposition home or self-care (01) ==
LOC: EUO 09:21
DX: Z45.2 Encounter for adjustment and management of vascular access device (principal); J90 Pleural effusion, not elsewhere classified
CPT/HCPCS: C1751

== ENCOUNTER 2021-11-08 08:39 | Outpatient (CLI) | payer MEDICARE ==
[~2021-11-08] VITALS: Ht 190.7 cm; Wt 106.0 kg
[2021-11-08 09:23] LABS: BASO # 0.1 K/mm3 (0.0-0.2); BASO % 1.3 % (0.0-2.0); EOS # 0.2 K/mm3 (0.0-0.7); EOS % 3.6 % (0.0-4.0); GRAN % 42.4 % (42.2-75.2); HEMATOCRIT 38.6 % (42.0-52.0); HEMOGLOBIN 12.5 g/dl (13.5-18.0); LYMPH % 42.7 % (20.0-51.0); MEAN CELL VOLUME 92 fl (80.0-100.0); MEAN CORPUSCULAR HEMOGLOBIN 30 pg (27-31); MEAN CORPUSCULAR HGB CONC 32 g/dl (33.0-37.0); MEAN PLATELET VOLUME 9.5 fl (7.4-10.4); MONO # 0.5 K/mm3 (0.1-0.6); MONO % 9.8 % (1.7-9.3); PLATELET COUNT 246 K/mm3 (130-400); RED BLOOD COUNT 4.22 M/mm3 (4.20-5.60); REDCELL DISTRIBUTION WIDTH-CV 14.4 % (11.5-14.5)
[2021-11-08] MEDS ORDERED: LAMICTAL 100MG100 MG PO (09:26)
[2021-11-08] MEDS ORDERED: CEFAZOLIN SODI100 ML IV (09:27)
[2021-11-08 09:33] VITALS: BP 111/60; PULSE 61; TEMP 98.2
[2021-11-08 09:37] LABS: CALCIUM 8.9 mg/dL (8.4-10.2); CREATININE, serum 0.95 mg/dL (0.72-1.25); POTASSIUM 3.7 mmol/L (3.5-4.5)
[2021-11-08 11:15] VITALS: BP 92/48; PULSE 77
--- NOTE | 2021-11-08 11:15 | NUR ---
report from Mami LARRY, pt is awake and alert, in room, spoke with and pt. Pt takes sprite and pudding, has no c/o, call light in reach
[2021-11-08 11:30] VITALS: BP 95/52; PULSE 70
[2021-11-08 11:45] VITALS: BP 117/67; PULSE 71
--- NOTE | 2021-11-08 11:45 | NUR ---
picc flushed by Calin RN, pt wrapped picc up with cloth will recieve antibiotic at 1500 at home. pt up and dressed, reviewed discharged inst. with pt on moderate sedation, followup and precautions, pt states has appt with infectious disease tomorrow in [place], pt discharged via w/c to car with at 1200
== END 2021-11-08 12:00 | disposition home or self-care (01) ==
LOC: COL.RAD 08:39
PROVIDERS: Internal Medicine Cardiovascular Disease
DX: I38 Endocarditis, valve unspecified (principal)
CPT/HCPCS: J2704

== ENCOUNTER 2022-03-03 11:56 | Outpatient (CLI) | payer MEDICARE ==
[~2022-03-03] VITALS: Ht 190.8 cm; Wt 108.7 kg
[~2022-03-03 11:56] MED LIST changes: +CEFAZOLIN SODI100 ML IV; +LAMICTAL 100MG100 MG PO
[2022-03-03] MEDS ORDERED: VITAMIND3 5000 PO (12:37)
[2022-03-03] MEDS ORDERED: CLARITIN 1010 MG/TAB PO (12:38)
[2022-03-03 12:39] LABS: HEMATOCRIT 39.6 % (42.0-52.0); HEMOGLOBIN 13.8 g/dl (13.5-18.0); MEAN CELL VOLUME 86 fl (80.0-100.0); MEAN CORPUSCULAR HEMOGLOBIN 30 pg (27-31); MEAN CORPUSCULAR HGB CONC 35 g/dl (33.0-37.0); MEAN PLATELET VOLUME 9.9 fl (7.4-10.4); PLATELET COUNT 220 K/mm3 (130-400); RED BLOOD COUNT 4.63 M/mm3 (4.20-5.60); REDCELL DISTRIBUTION WIDTH-CV 13.2 % (11.5-14.5)
[2022-03-03] MEDS ORDERED: PROLASTIN IV (12:40)
[2022-03-03 12:49] LABS: INR 1.1 (0.8-3.0); PROTHROMBIN TIME 12.1 SECONDS (9.7-12.8)
[2022-03-03 12:51] LABS: CALCIUM 8.9 mg/dL (8.4-10.2); CREATININE, serum 0.96 mg/dL (0.72-1.25); POTASSIUM 3.9 mmol/L (3.5-4.5)
[2022-03-03 12:56] VITALS: BP 109/78; PULSE 94; TEMP 97.5
[2022-03-03 14:00] VITALS: BP 111/70; PULSE 55
[2022-03-03 14:15] VITALS: BP 110/69; PULSE 62
[2022-03-03 14:30] VITALS: BP 113/70; PULSE 53
[2022-03-03 14:45] VITALS: BP 111/65; PULSE 48
[2022-03-03 15:00] VITALS: BP 111/65; PULSE 49
--- NOTE | 2022-03-03 15:05 | NUR ---
DC instructions reviewed with pt and . Both express understanding. Pt is steady on feet in room. He has tolerated PO without issue. He was placed on cardiac tech following AILYN, with variable heart rate from upper 40s to 60s. Pt states this is typical for him. He denies dizziness, feeling lightheaded, or other complaints. IV site wrapped with coban. He is assisted out to 's car by wheelchair with belongings.
== END 2022-03-03 15:10 | disposition home or self-care (01) ==
LOC: COL.RAD 11:56
PROVIDERS: Internal Medicine Cardiovascular Disease
DX: I38 Endocarditis, valve unspecified (principal)
CPT/HCPCS: J2704; J7120

== ENCOUNTER 2022-07-08 17:43 | Emergency (ER) | payer MEDICARE, MEDICAID ==
[~2022-07-08] VITALS: Ht 190.5 cm; Wt 109.1 kg
[~2022-07-08 17:43] MED LIST changes: +VITAMIND3 5000 PO
[2022-07-08 17:51] VITALS: BP 134/75; TEMP 98.8
[2022-07-08 18:45] VITALS: PULSE 77
[2022-07-10] MEDS ORDERED: OMNICEF 300MG300 MG PO (12:49)
== END 2022-07-08 18:46 | disposition home or self-care (01) ==
LOC: COL.ER 17:43
DX: Z45.2 Encounter for adjustment and management of vascular access device (principal); Z87.891 Personal history of nicotine dependence

== ENCOUNTER 2022-09-29 08:09 | Outpatient (RCR) | payer MEDICARE, MEDICAID ==
[~2022-09-29] VITALS: Ht 190.5 cm; Wt 114.9 kg
[~2022-09-29 08:09] MED LIST changes: +CLEOCIN HCL300 MG PO; +OMNICEF 300MG300 MG PO
--- NOTE | 2022-09-29 08:55 | NUR ---
Pt to EU for PICC eval, no blood return. Mutiple flushes attempted, pt positioning attempted and coughing attempted, with no sucess. Pt line flushes very well. Chest xray ordered to veryify placement.
--- NOTE | 2022-09-29 08:56 | NUR ---
Chest xray visiualized with PICC tip located in the appropriate location of the LSVC. Next step would be to order cathflo in case of a fibrin sheath at tip of catheter. LARON Dickerson in contacted Dr Veras's office for order. Will await return call. PT agreeable to return sunday for Cathflo if oder is unatainable in a resonable amount of time.
[2022-09-29 08:58] VITALS: BP 149/82; PULSE 83; TEMP 97.5
--- NOTE | 2022-09-29 09:05 | NUR ---
No blood return from PICC after multiple flushes.PICC fluses without resistance.Pt reports no blood return with recent ER visit and recent weekly infuson.Pt gets PICC dressing changes and PICC cares elsewhere.SLAVA López in to evaluate.Portable chest xray obtained.Awaiting orders from office requesting cathflow.Pt reports he will be in town today if order comes.Planned apt for Sunday if order not received today.
--- NOTE | 2022-09-29 11:13 | NUR ---
Pt returned via ambulatory for cathflow
--- NOTE | 2022-09-29 11:50 | NUR ---
No blood return at PICC site after 30 minutes wait time.Will leave medication instilled anoth 30 min.
--- NOTE | 2022-09-29 13:15 | NUR ---
Blood return at aspirations of PICC.Patient discharged via ambulatory.
== END 2022-09-29 14:37 ==
LOC: EUO 08:09
DX: Z45.2 Encounter for adjustment and management of vascular access device (principal)
CPT/HCPCS: J2997

== ENCOUNTER 2023-07-12 11:25 | Emergency (ER) | payer MEDICARE, MEDICAID ==
[~2023-07-12] VITALS: Ht 190.5 cm; Wt 104.5 kg
[2023-07-12 11:29] VITALS: TEMP 98.2
[2023-07-12 13:09] VITALS: BP 126/66; PULSE 72
== END 2023-07-12 13:10 | disposition home or self-care (01) ==
LOC: COL.ER 11:25
DX: S46.201A Unspecified injury of muscle, fascia and tendon of other parts of biceps, right arm, initial encounter (principal); Z91.040 Latex allergy status; W13.8XXA Fall from, out of or through other building or structure, initial encounter; X50.0XXA Overexertion from strenuous movement or load, initial encounter; Y92.59 Other trade areas as the place of occurrence of the external cause; Y99.0 Civilian activity done for income or pay

== ENCOUNTER → 2023-08-14 | Outpatient (CLI) | payer MEDICARE ==
[~2023-08-14] MED LIST changes: +Gadoterate 5 ML VIAL IV ONE; +Iohexol 300 - 10 ML VIAL IV ONE
== END ==
LOC: COL.RAD 08:30
DX: M25.511 Pain in right shoulder (principal)
CPT/HCPCS: A9575; Q9967

== ENCOUNTER 2023-09-06 14:13 | Outpatient (RCR) | payer MEDICARE ==
[~2023-09-06 14:13] MED LIST changes: -Gadoterate 5 ML VIAL IV ONE; -Iohexol 300 - 10 ML VIAL IV ONE
== END 2023-09-09 | disposition home or self-care (01) ==
LOC: WSPT
DX: M25.511 Pain in right shoulder (principal)

== ENCOUNTER 2023-10-15 08:05 | Outpatient (RCR) | payer MEDICARE | END 2023-10-15 10:00 | disposition home or self-care (01) | LOC: WSPT 08:05 | DX: M25.511 Pain in right shoulder (principal) ==

== ENCOUNTER 2023-10-21 22:14 | Emergency (ER) | payer MEDICARE ==
[~2023-10-21] VITALS: Ht 190.5 cm; Wt 104.5 kg
[2023-10-21 22:24] VITALS: TEMP 97.9
[2023-10-21] MEDS ORDERED: Ketorolac 30 MG/ML VIAL IM ONE (22:45)
[2023-10-21] MEDS ORDERED: Baclofen 10 MG TAB PO ONE (22:45)
[2023-10-21] MEDS ORDERED: Acetaminophen 500 MG TAB PO ONE (22:45)
[2023-10-21] MEDS ORDERED: LIORESAL 1010 MG/TAB PO (23:01)
[2023-10-21 23:11] VITALS: BP 141/77; PULSE 83
== END 2023-10-21 23:10 | disposition home or self-care (01) ==
LOC: COL.ER 22:14
DX: M62.830 Muscle spasm of back (principal); Z91.040 Latex allergy status
CPT/HCPCS: J1885